=== PATIENT | female | born 1995 | race Two or more races ===

== ENCOUNTER 2017-09-11 14:13 | Emergency (ER) | payer OTHER ==
[2017-09-11 14:31] VITALS: BP 115/61; BMI 34.4
--- NOTE | 2017-09-11 15:02 | ED.ABDFE ---
HPI - Time seen Time seen: 15:20 - PCP Primary Care Physician: MICHEL - HPI Comment HPI Comment: HISTORY BELOW. - Complaint Chief Complaint Doctors Comments: LOWER ABDOMINAL PAIN WITH NAUSEA FOR 4 DAYS. WORSE TODAY. HOME TEST POSITIVE. NO FEVER OR DYSURIA. Chief Complaint:: PT C/O HAVING SHARPS TO HER LOWER ABD AND SOME NAUSEA PT DOES NOT KNOW HER LMP.. PT TOOK A PREG TEST AND SHE SAYS ITS +... - Nurses notes reviewed Nurses Notes Review: Yes - Source History Provided: Patient - Mode of arrival Mode of Arrival: Ambulatory - Timing Onset of Chief Complaint: 09/07/17 Came on: Suddenly - Duration Duration: Intermittent Duration: Days - Location Location: RLQ, LLQ, Suprapubic - Severity Severity: Moderate - Quality Quality: Cramping - Context Onset: Suddenly History of: None - Modifying Worsening Factors: Nothing Improving Factors: Nothing - Associated signs and symptoms Associated Signs and Symptoms: Nausea PMH - PMH Past Medical History: No Past Surgical History: Yes Past Surgical History Comment: . - Family History History of Family Medical Conditions: No - Social History Does patient currently use any type of tobacco product: No Have you used tobacco products in the last 12 months: No Type of Tobacco Use: None Does any household member use tobacco: No Alcohol Use: None Do you use any recreational Drugs:: No Lives With: Family Lives Where: Home - infectious screening In the last 2 months have you had wt loss of >10#?: NO Have you had fever, night sweats or hemotysis?: No Have you traveled outside the country in the last 6 months?: No Isolation: Standard ROS - Review of Systems Constitutional: No Symptoms Reported. negative: Weakness, Fatigue Eyes: No Symptoms Reported. negative: Eye Pain, Discharge ENTM: No Symptoms Reported. negative: Ear Pain, Nose Discharge, Nose Congestion , Throat Pain Respiratoy: No Symptoms Reported. negative: Short of Breath, Wheezing Cardiovascular: No Symptoms Reported. negative: Chest Pain Gastrointestinal/Abdominal: Abdominal Pain, Nausea Genitourinary: No Symptoms Reported. negative: Dysuria, Frequency, Hematuria Neurological: No Symptoms Reported Musculoskeletal: No Symptoms Reported Integumentary: No Symptoms Reported Hematologic/Lymphatic: No Symptoms Reported Endocrine: No Symptoms Reported All Other Systems: Reviewed and Negative PE - Vital Signs Vitals: Temperature 98.4 F Pulse Rate 98 Respiratory Rate 18 Blood Pressure [Left Arm] 119/60 Blood Pressure 115/61 O2 Sat by Pulse Oximetry 95 - General Limitations: No Limitations General Appearance: Alert - Head Head Exam: Normal Inspection - Eyes Eye exam: Normal Appearance - ENT ENT Exam: Normal External Ear Exam - Neck Neck Exam: Trachea Midline - Chest Chest Inspection: Symmetric Chest Wall Rise - Respiratory Respiratory Exam: Normal Lung Sounds Bilat Respiratory Exam: Bilateral Clear to Auscultation - Cardiovascular Cardiovascular Exam: Regular Rate, Normal Rhythm, Normal Heart Sounds - Abdominal Exam Abdominal Exam: Normal Bowel Sounds, Soft. negative: Tenderness - Rectal Rectal Exam: Deferred - Back Back Exam: Normal Inspection - Extremeties Extremities Exam: Normal Inspection - External Exam: Female: Deferred : Speculum Exam (Female): Deferred : Bimanual Exam (female): Deferred - Neurologic Neurological Exam: Alert, Oriented X3 - Psychiatric Psychiatric Exam: Normal Affect, Normal Mood - Skin Skin Exam: Normal Color MDM - Additional Information Obtained From Additional information provided by: Family - Differential Diagnosis Differential Diagnosis- Considerations may include:: Urinary tract infection ( , ABDOMINAL PAIN) Course - Treatment Treatment: SEE ORDERS. - Education/Counseling Education/Counseling: Patient, Family, Education Educated On: Diagnosis, Needs for Follow Up ROR - Labs Reviewed Laboratory Results Reviewed?: Yes Laboratory: HCG, Qual Negative <10 mIU/mL 09/11/17 15:40 Specimen Type Clean catch urine 09/11/17 15:46 Urine Color Yellow (YELLOW) 09/11/17 15:46 Urine Appearance Cloudy (CLEAR) 09/11/17 15:46 Urine pH 8.0 (5.0 - 8.0) 09/11/17 15:46 Ur Specific [place] 1.015 (1.000-1.030) 09/11/17 15:46 Urine Protein Negative (NEGATIVE) 09/11/17 15:46 Urine Glucose (UA) Negative (NEGATIVE) 09/11/17 15:46 Urine Ketones Negative (NEGATIVE) 09/11/17 15:46 Urine Occult Blood Negative (NEGATIVE) 09/11/17 15:46 Urine Nitrite Negative (NEGATIVE) 09/11/17 15:46 Urine Bilirubin Negative (NEGATIVE) 09/11/17 15:46 Urine Urobilinogen Normal (NORMAL) 09/11/17 15:46 Ur Leukocyte Esterase 1+ (NEGATIVE) 09/11/17 15:46 Urine RBC 0-2 /HPF (NEGATIVE) 09/11/17 15:46 Urine WBC 0-2 /HPF (NEGATIVE) 09/11/17 15:46 Ur Squamous Epith Cells Few /HPF (NEGATIVE) 09/11/17 15:46 Amorphous Sediment 3+ /HPF (NEGATIVE) 09/11/17 15:46 Urine Bacteria 1+ /HPF (NEGATIVE) 09/11/17 15:46 Ur Culture Indicated? No/not indicated 09/11/17 15:46 - Diagnosis Discharge Problem: Abdominal pain Qualifiers: Abdominal location: generalized Qualified Code(s): R10.84 - Generalized abdominal pain - Discharge Plan Disposition: HOME, SELF-CARE Condition: Stable - Follow ups/Referrals Follow ups/Referrals: Selvin PEARSON [Primary Care Provider] - 09/13/17 ROHAN BOWEN [STAFF PHYSICIAN] - 09/13/17 - Instructions Instructions: Abdominal Pain, Adult, [id number] Additional Instructions: RETURN TO ED IF WORSE.
[2017-09-11 15:48] LABS: BILIRUBIN,URINE NEGATIVE (NEGATIVE); BLOOD/HEMOGLOBIN,URINE NEGATIVE (NEGATIVE); GLUCOSE, URINE NEGATIVE (NEGATIVE); KETONES,URINE NEGATIVE (NEGATIVE); LEUKOCYTE ESTERASE ,URINE 1+ (NEGATIVE); NITRITES,URINE NEGATIVE (NEGATIVE); PROTEIN,URINE NEGATIVE (NEGATIVE); UROBILINOGEN,URINE NORMAL (NORMAL)
[2017-09-11 15:53] LABS: COLOR,URINE YELLOW (YELLOW)
[2017-09-11 15:54] LABS: AMORPHOUS SEDIMENT,UR 3+ /HPF (NEGATIVE); APPEARANCE,URINE CLOUDY (CLEAR); BACTERIA,URINE 1+ /HPF (NEGATIVE); RBC,URINE 0-2 /HPF (NEGATIVE); SQUAMOUS EPITHELIAL CELL,UR FEW /HPF (NEGATIVE)
[2017-09-11 15:57] LABS: SERUM PREGNANCY TEST, QUAL NEGATIVE <10 mIU/mL
== END 2017-09-11 16:12 | disposition home or self-care (01) ==
LOC: ER 14:51
DX: R10.84 Generalized abdominal pain (principal)
CPT/HCPCS: 36415; 81001; 84703; 99282; 99283

== ENCOUNTER 2017-10-11 21:08 | Emergency (ER) | payer OTHER ==
[2017-10-11 21:21] VITALS: BP 114/60; BMI 29.2
--- NOTE | 2017-10-11 22:30 | DR.GENAD ---
HPI - PCP Primary Care Physician: - HPI Comment HPI Comment: PATIENT IS 23 WEEKS . DENIES TRAUMA. - Complaint/Symptoms Chief Complaint Doctors Comments: LOWER ABDOMINAL PAIN NOTED TODAY. NO DYSURIA OR VAGINAL BLEEDING. Chief Complaint:: Pressure on your stomach and sharp pain around waist. Had appointmwent in the AM but felt like she couldn't wait. Pt states she is 19 weeks. Self Treatment fo Chief Complaint: Took warm bath - Nurses notes reviewed Nurses Notes Review: Yes - Source History Provided: Patient - Mode of Arrival Mode of Arrival: Ambulatory - Timing Onset of Chief Complaint: 10/10/17 Came on: Suddenly - Duration Duration: Constant Duration: Hours - Severity Severity: Moderate PMH - PMH Past Medical History: No Past Medical History Comment: 1 other Past Surgical History: Yes Surgical History: - Family History History of Family Medical Conditions: No - Social History Alcohol Use: None Do you use any recreational Drugs:: No Lives With: Spouse - infectious screening In the last 2 months have you had wt loss of >10#?: NO Have you had fever, night sweats or hemotysis?: No Have you traveled outside the country in the last 6 months?: No ROS - Review of Systems Constitutional: No Symptoms Reported Eyes: No Symptoms Reported ENTM: No Symptoms Reported Respiratoy: No Symptoms Reported Cardiovascular: No Symptoms Reported Gastrointestinal/Abdominal: Abdominal Pain, Nausea. negative: Diarrhea, Vomiting Genitourinary: No Symptoms Reported. negative: Dysuria, Frequency, Hematuria Neurological: No Symptoms Reported Musculoskeletal: No Symptoms Reported Integumentary: No Symptoms Reported Hematologic/Lymphatic: No Symptoms Reported Endocrine: No Symptoms Reported All Other Systems: Reviewed and Negative PE - Vital Signs Vitals: Temperature 98.5 F Pulse Rate 105 Respiratory Rate 20 Blood Pressure [Left Arm] 119/60 Blood Pressure 114/60 O2 Sat by Pulse Oximetry 98 - General Limitations: No Limitations General Appearance: Alert - Head Head Exam: Normal Inspection - Eyes Eye exam: Normal Appearance - ENT ENT Exam: Normal External Ear Exam External Ear Exam: Normal External Inspection TM/Canal Exam: Bilateral Normal Nose Exam: Normal Nose Exam Mouth Exam: Normal Inspection Throat Exam: Normal Inspection - Neck Neck Exam: Normal Inspection - Chest Chest Inspection: Symmetric Chest Wall Rise - Respiratory Respiratory Exam: Normal Lung Sounds Bilat Respiratory Exam: Bilateral Clear to Auscultation - Cardiovascular Cardiovascular Exam: Regular Rate, Normal Rhythm, Normal Heart Sounds - Abdominal Exam Abdominal Exam: Normal Bowel Sounds, Soft. negative: Tenderness Abdominal Tenderness: RLQ, LLQ, Suprapubic, Moderate - Extremities Extremities Exam: Normal Inspection - Back Back Exam: Normal Inspection - Neurologic Neurological Exam: Alert, Oriented X3 - Psychiatric Psychiatric Exam: Anxious - Skin Skin Exam: Normal Color MDM - Additional Information Additional Information Obtained From: Family - Differential Diagnosis Differential Diagnosis: ABDOMINAL PAIN IN , UTI, THREATENED MISCARRIAGE. Course - Treatment Treatment: SEE ORDERS. - Education/Counseling Education/Counseling: Patient, Family, Education Educated On: Diagnosis, Needs for Follow Up ROR - Labs Reviewed Laboratory Results Reviewed?: Yes Laboratory: HCG, Quant 70445 mIU/mL (0-6) H 10/11/17 22:08 Specimen Type Clean catch urine 10/11/17 22:18 Urine Color Yellow (YELLOW) 10/11/17:18 Urine Appearance Hazy (CLEAR) 10/11/17:18 Urine pH 6.0 (5.0 - 8.0) 10/11/17:18 Ur Specific [place] 1.020 (1.000-1.030) 10/11/17 22:18 Urine Protein 1+ (NEGATIVE) 10/11/17 22:18 Urine Glucose (UA) Negative (NEGATIVE) 10/11/17:18 Urine Ketones Negative (NEGATIVE) 10/11/17:18 Urine Occult Blood 2+ (NEGATIVE) 10/11/17:18 Urine Nitrite Negative (NEGATIVE) 10/11/17:18 Urine Bilirubin Negative (NEGATIVE) 10/11/17:18 Urine Urobilinogen 2+ (NORMAL) 10/11/17 22:18 Ur Leukocyte Esterase 1+ (NEGATIVE) 10/11/17 22:18 Urine RBC 5-7 /HPF (NONE SEEN) 10/11/17 22:18 Urine WBC 0-2 /HPF (NONE SEEN) 10/11/17 22:18 Ur Squamous Epith Cells Moderate /HPF (NEGATIVE) 10/11/17 22:18 Amorphous Sediment Trace /HPF (NEGATIVE) 10/11/17 22:18 Urine Bacteria 2+ /HPF (NEGATIVE) 10/11/17:18 Urine Mucus Moderate /HPF (NEGATIVE) 10/11/17 22:18 Ur Culture Indicated? No/not indicated 02/26/18 22:18 - XRAY XRAY Interpreted by: Radiologist XRAY Findings: REPORT DISCUSS WITH PATIENT AND HER - Diagnosis Discharge Problem: Abdominal pain affecting - Discharge Plan Condition: Stable - Follow ups/Referrals Follow ups/Referrals: RUBI RODRIGUEZ [Primary Care Provider] - 10/12/17 - Instructions Instructions: Abdominal Pain During , [id number], Pelvic Rest Additional Instructions: RETURN TO ED IF WORSE.
[2017-10-11 22:42] LABS: BILIRUBIN,URINE NEGATIVE (NEGATIVE); BLOOD/HEMOGLOBIN,URINE 2+ (NEGATIVE); GLUCOSE, URINE NEGATIVE (NEGATIVE); KETONES,URINE NEGATIVE (NEGATIVE); LEUKOCYTE ESTERASE ,URINE 1+ (NEGATIVE); NITRITES,URINE NEGATIVE (NEGATIVE); PROTEIN,URINE 1+ (NEGATIVE); UROBILINOGEN,URINE 2+ (NORMAL)
[2017-10-11 22:53] LABS: AMORPHOUS SEDIMENT,UR TRACE /HPF (NEGATIVE); APPEARANCE,URINE HAZY (CLEAR); BACTERIA,URINE 2+ /HPF (NEGATIVE); COLOR,URINE YELLOW (YELLOW); MUCUS,URINE MODERATE /HPF (NEGATIVE); SQUAMOUS EPITHELIAL CELL,UR MODERATE /HPF (NEGATIVE)
--- NOTE | 2017-10-11 23:18 | US ---
History: Pain Exam: Pelvic ultrasound Comparison: None Technique: Multiple grayscale and color flow Doppler images of the pelvis were obtained. Findings: There is a single intrauterine in the transverse presentation. The placenta is anteriorly l ocated and is normal in echogenicity. Cardiac activity was documented at 148 beats per minute . There is a 4 chamber view of the heart . There is a 3 vessel cord with a normal cord insertion site . Ther e is normal amniotic fluid volume . The stomach and bladder visualized. The BPD measures 5.4 cm apica l to 22 weeks 4 days. The head circumference is 20.7 cm equal to 22 weeks 6 days. The abdominal circu mference is 19.7 cm equal to 24 weeks 3 days. The femur length is 4.3 cm equal to 24 weeks 1 day. IMPRESSION: Single viable intrauterine with an estimated gestational age of 23 weeks 4 days and an mayuri mated date of delivery of 02/07/2018 with no gross abnormality seen. Reported By:
== END 2017-10-11 23:35 | disposition home or self-care (01) ==
LOC: ER 21:36
DX: R10.31 Right lower quadrant pain (principal); Z3A.23 23 weeks gestation of pregnancy
CPT/HCPCS: 36415; 76815; 81001; 84702; 99284

== ENCOUNTER 2018-02-04 06:14 | Inpatient (IN) ==
[2018-02-04] MEDS ORDERED: LR 1000 ML IV 1,000 ML IV ONE ×2 (06:15→07:37)
[2018-02-04] MEDS ORDERED: ANCEF 1 GRAM IV PREMIX* 1 G/50 ML BAG IV ONE (06:15)
[2018-02-04] MEDS ORDERED: D5 1/2 NS 1000 ML 1,000 ML IV SCH (06:35)
[2018-02-04] MEDS ORDERED: ANCEF VIAL 1 GRAM 1 G in NS 50 ML IV + SPIKE MINIBAG* 50 ML IV PRN (06:35)
[2018-02-04] MEDS ORDERED: DURAMORPH ONE (07:15)
[2018-02-04] MEDS ORDERED: D5 1/2 NS 1L W PITOCIN 20 UNITS/L 20 UNITS/1,000 ML BAG IV ONE (08:13)
[2018-02-04] MEDS ORDERED: ZOFRAN INJ 4 MG VIAL IVP PRN ×2 (08:28→09:20)
[2018-02-04] MEDS ORDERED: REGLAN INJ 10 MG VIAL IVP PRN ×2 (08:28→09:20)
[2018-02-04] MEDS ORDERED: DILAUDID INJ IVP PRN (08:28)
[2018-02-04] MEDS ORDERED: PHENERGAN INJ 25 MG IVP PRN (08:28)
[2018-02-04] MEDS ORDERED: BENADRYL INJ 50 MG VIAL IVP PRN ×2 (08:28→09:20)
[2018-02-04] MEDS ORDERED: PITOCIN ONE (08:55)
[2018-02-04] MEDS ORDERED: EPHEDRINE SULFATE INJ ONE (08:55)
[2018-02-04] MEDS ORDERED: VERSED ONE (08:55)
[2018-02-04] MEDS ORDERED: NARCAN INJ IVP PRN (09:20)
[2018-02-04] MEDS ORDERED: TORADOL 30 MG VIAL IVP PRN (09:20)
[2018-02-04] MEDS ORDERED: MYLICON TAB 80 MG CHEW PO PRN (09:20)
[2018-02-04] MEDS ORDERED: ADACEL or BOOSTRIX TDaP VACCINE IM ONE (09:20)
[2018-02-04] MEDS ORDERED: D5 1/2 NS 1000 ML 1,000 ML with PITOCIN 20 UNITS IV SCH ×2 (09:20)
[2018-02-04] MEDS: ZANTAC PO SCH ×2 (11:09→21:34)
[2018-02-04] MEDS: PRENATAL PLUS PO SCH (11:09)
[2018-02-04] MEDS: FERROUS GLUCONATE PO SCH (17:09)
[2018-02-05 05:20] LABS: HEMATOCRIT 27.4 % (36.0-47.0)
[2018-02-05] MEDS: PERCOCET TAB 5/325 MG PO PRN ×3 (05:36→19:31)
[2018-02-05] MEDS: FERROUS GLUCONATE PO SCH ×2 (06:07→17:09)
[2018-02-05] MEDS ORDERED: MOTRIN TAB 800 MG PO PRN (08:47)
[2018-02-05] MEDS: PRENATAL PLUS PO SCH (09:15)
[2018-02-05] MEDS: ZANTAC PO SCH ×2 (09:16→21:30)
[2018-02-05] MEDS: COLACE CAP 100 MG PO SCH ×2 (13:52→21:30)
[2018-02-05] MEDS: BACTROBAN TOPICAL OINT TOP SCH ×2 (13:52→21:30)
[2018-02-06] MEDS: BACTROBAN TOPICAL OINT TOP SCH ×2 (05:14→14:23)
[2018-02-06] MEDS: FERROUS GLUCONATE PO SCH (06:05)
[2018-02-06] MEDS: PRENATAL PLUS PO SCH (09:41)
[2018-02-06] MEDS: COLACE CAP 100 MG PO SCH (09:41)
[2018-02-06] MEDS: ZANTAC PO SCH (09:41)
[2018-02-06 12:13] VITALS: BP 102/56
== END 2018-02-06 15:20 | disposition home or self-care (01) | DRG 765 ==
LOC: LD 06:14 → MED/SURG 09:32
PROVIDERS: ADMIT Specialist; ATTEND Specialist
DX: Z3A.39 39 weeks gestation of pregnancy; Z37.0 Single live birth; O34.211 Maternal care for low transverse scar from previous cesarean delivery; D50.8 Other iron deficiency anemias; Z23 Encounter for immunization; O99.013 Anemia complicating pregnancy, third trimester; N85.8 Other specified noninflammatory disorders of uterus; O98.311 Other infections with a predominantly sexual mode of transmission complicating pregnancy, first trimester
CPT/HCPCS: 36415; 80048; 81001; 85014; 85018; 85025; 85610; 85730; 86592; 86850; 86900; 86901; 90715; A4216; A4222; S0197; J0690; J1200; J1885; J2250; J2405; J2590; J3490; J7120

== ENCOUNTER 2022-07-16 06:35 | Inpatient (IN) ==
[2022-07-16] MEDS ORDERED: D5 1/2 NS 1,000 ML 1,000 ML IV SCH (06:37)
[2022-07-16] MEDS ORDERED: ANCEF VIAL 1 GRAM IVP ONE (06:37)
[2022-07-16] MEDS ORDERED: LR 1,000 ML IV 1,000 ML IV ONE (06:39)
[2022-07-16] MEDS ORDERED: NS 100 ML IV 100 ML ONE (06:39)
[2022-07-16] MEDS ORDERED: D5 1/2 NS 1,000 mL + PITOCIN 20 UNITS/L IV 20 UNITS/1,000 ML BAG IV ONE ×2 (06:40→09:32)
[2022-07-16] MEDS ORDERED: DILAUDID INJ ONE (07:15)
[2022-07-16] MEDS ORDERED: VERSED ONE (07:15)
[2022-07-16] MEDS ORDERED: PITOCIN ONE ×2 (07:15→08:19)
[2022-07-16] MEDS ORDERED: XYLOCAINE 2 % (PLAIN) ONE (07:16)
[2022-07-16] MEDS ORDERED: MARCAINE SPINAL ONE (07:16)
[2022-07-16] MEDS ORDERED: REGLAN INJ 10 MG VIAL ONE (08:21)
[2022-07-16] MEDS ORDERED: DILAUDID INJ IVP PRN (09:24)
[2022-07-16] MEDS ORDERED: BARHEMSYS INJ IVP PRN (09:24)
[2022-07-16] MEDS ORDERED: PHENERGAN INJ 25 MG IM PRN (09:24)
[2022-07-16] MEDS ORDERED: BENADRYL INJ 50 MG VIAL IVP PRN ×2 (09:24→09:46)
[2022-07-16] MEDS ORDERED: REGLAN INJ 10 MG VIAL IVP PRN ×2 (09:24→09:46)
[2022-07-16] MEDS ORDERED: ZOFRAN INJ 4 MG VIAL IVP PRN ×2 (09:24→09:46)
[2022-07-16] MEDS ORDERED: NARCAN INJ IVP PRN (09:46)
[2022-07-16] MEDS ORDERED: ADACEL or BOOSTRIX TDaP VACCINE IM ONE ×2 (09:46→18:00)
[2022-07-16] MEDS ORDERED: PERCOCET TAB 5/325 MG PO PRN (09:46)
[2022-07-16] MEDS ORDERED: MYLICON TAB 80 MG CHEW PO PRN (09:46)
[2022-07-16] MEDS ORDERED: D5 1/2 NS 1,000 ML 1,000 ML with PITOCIN 20 UNITS IV SCH ×2 (10:00)
[2022-07-16] MEDS: TORADOL 30 MG VIAL IVP PRN (11:06)
[2022-07-17] MEDS: TORADOL 30 MG VIAL IVP PRN (03:26)
[2022-07-17 04:59] LABS: HEMATOCRIT 24.4 % (36.0-47.0)
[2022-07-17] MEDS ORDERED: MOTRIN TAB 800 MG PO PRN (06:24)
[2022-07-17] MEDS: FERROUS GLUCONATE PO SCH ×2 (06:39→17:38)
[2022-07-17] MEDS: COLACE CAP 100 MG PO SCH ×2 (09:07→21:07)
[2022-07-17] MEDS: PRENATAL PLUS PO SCH (09:07)
[2022-07-17] MEDS: PERCOCET TAB 5/325 MG PO PRN ×2 (12:00→17:38)
[2022-07-17] MEDS: BACTROBAN TOPICAL OINT TOP SCH ×2 (14:51→22:22)
[2022-07-18] MEDS: BACTROBAN TOPICAL OINT TOP SCH (05:23)
[2022-07-18] MEDS: FERROUS GLUCONATE PO SCH (06:08)
[2022-07-18] MEDS: PRENATAL PLUS PO SCH (09:22)
[2022-07-18] MEDS: COLACE CAP 100 MG PO SCH (09:22)
[2022-07-18 12:22] VITALS: BP 99/53
== END 2022-07-18 12:50 | disposition home or self-care (01) | DRG 784 ==
LOC: LD 06:35 → MED/SURG 09:47
PROVIDERS: ADMIT Specialist; ATTEND Specialist
DX: O98.82 Other maternal infectious and parasitic diseases complicating childbirth; Z3A.39 39 weeks gestation of pregnancy; O34.211 Maternal care for low transverse scar from previous cesarean delivery; N85.8 Other specified noninflammatory disorders of uterus; B95.1 Streptococcus, group B, as the cause of diseases classified elsewhere; Z37.0 Single live birth; Z01.818 Encounter for other preprocedural examination; Z01.812 Encounter for preprocedural laboratory examination; R79.89 Other specified abnormal findings of blood chemistry